=== PATIENT | female | born 1940 ===

== ENCOUNTER 2017-06-30 08:45 | Inpatient (IN) | payer MEDICARE, MEDICAID ==
[2017-06-30 08:47] VITALS: BMI 39.0
[2017-06-30] MEDS ORDERED: Aspirin 325 mg EC Tablets PO STA (09:51)
[2017-06-30 10:07] LABS: BASO # 0.1 K/uL (0.0-0.2); BASO % 0.7 % (0.0-2.0); EOS # 0.1 K/uL (0.0-0.7); EOS % 1.6 % (0.0-4.0); HEMATOCRIT 43.7 % (34.0-47.0); LYMPH # 2.1 K/uL (1.0-4.3); LYMPH % 26.5 % (20.0-40.0); MEAN CORPUSCULAR HEMOGLOBIN 29.3 pg (27.0-31.0); MEAN PLATELET VOLUME 8.6 fL (7.2-11.7); MONO # 0.6 K/uL (0.0-0.8); MONO % 7.1 % (0.0-10.0); NRBC % 0.1 % (0.0-2.0); WHITE BLOOD COUNT 7.9 K/uL (4.8-10.8)
--- NOTE | 2017-06-30 10:13 | C.PDOC ---
Time Seen by Provider: 06/30/17 09:22 Chief Complaint (Nursing): Shortness Of Breath Past Medical History Vital Signs: Last Vital Signs Temp 99 F 06/30/17 08:51 Pulse 89 06/30/17 08:51 Resp 20 06/30/17 09:15 BP 145/83 06/30/17 08:51 Pulse Ox 99 06/30/17 08:51 - Medical History PMH: HTN, Hypercholesterolemia - Social History Hx Alcohol Use: No Hx Substance Use: No - Immunization History Hx Tetanus Toxoid Vaccination: No Hx Influenza Vaccination: No Hx Pneumococcal Vaccination: No ED Course And Treatment - Laboratory Results Result Diagrams: 06/30/17 10:03 ECG: Interpreted By Me ECG Rhythm: Sinus Rhythm ECG Interpretation: Normal Interpretation Of ECG: normal axis, Normal ST-T wave Rate From EC O2 Sat by Pulse Oximetry: 99 (on RA) Pulse Ox Interpretation: Normal Disposition - Disposition
[2017-06-30 10:17] LABS: INR 1.1
--- NOTE | 2017-06-30 10:21 | C.PDOC ---
History Of Present Illness 76-year-old female, presents to the emergency department with complaints of shortness of breath, for the past few months. Patient notes associated light headedness. Denies nausea/vomiting, fevers, chills, chest pain, dizziness, or any other associated symptoms. No other complaints at this time. Time Seen by Provider: 06/30/17 09:22 Chief Complaint (Nursing): Shortness Of Breath History Per: Patient History/Exam Limitations: no limitations Onset/Duration Of Symptoms: Days Past Medical History Reviewed: Historical Data, Nursing Documentation, Vital Signs Vital Signs: Last Vital Signs Temp 97.9 F 06/30/17 14:34 Pulse 81 06/30/17 14:34 Resp 20 06/30/17 14:34 BP 138/75 06/30/17 14:34 Pulse Ox 96 06/30/17 14:34 - Medical History PMH: HTN, Hypercholesterolemia Family History: States: No Known Family Hx - Social History Hx Alcohol Use: No Hx Substance Use: No - Immunization History Hx Tetanus Toxoid Vaccination: No Hx Influenza Vaccination: No Hx Pneumococcal Vaccination: No Review Of Systems Except As Marked, All Systems Reviewed And Found Negative. Constitutional: Negative for: Fever, Chills Cardiovascular: Negative for: Chest Pain, Palpitations Respiratory: Positive for: Shortness of Breath Gastrointestinal: Negative for: Vomiting Neurological: Positive for: Dizziness. Negative for: Weakness, Numbness, Headache Physical Exam - Physical Exam Appears: Non-toxic, No Acute Distress Skin: Warm, Dry, No Rash Head: Atraumatic, Normacephalic Eye(s): bilateral: Normal Inspection, PERRL, EOMI Ear(s): Bilateral: Normal Oral Mucosa: Moist Neck: Normal ROM Chest: Symmetrical, No Tenderness Cardiovascular: Rhythm Regular, No Friction Rub, No Murmur Respiratory: Normal Breath Sounds, No Rales, No Rhonchi, No Wheezing Gastrointestinal/Abdominal: Soft, No Tenderness, Other (Obese) Back: Normal Inspection, No CVA Tenderness Extremity: Normal ROM, No Calf Tenderness, No Swelling Neurological/Psych: Oriented x3, Normal Speech, Normal Motor, Normal Sensation Gait: Steady ED Course And Treatment - Laboratory Results Result Diagrams: 06/30/17 10:03 06/30/17 10:03 ECG: Interpreted By Me ECG Rhythm: Sinus Rhythm ECG Interpretation: Normal Interpretation Of ECG: normal axis, normal ST-T wave Rate From EC O2 Sat by Pulse Oximetry: 99 (on 2L) Pulse Ox Interpretation: Normal Medical Decision Making Medical Decision Making: Plan: * EKG * Bloodwork * Chest X-Ray * Aspirin * Reassess and Disposition On re-exam, the patient is resting comfortably on NC. Case was discussed with Dr. Nielsen (vegetable thinner) who states that he sent the patient to the ED for worsened SOB and dyspnea on exertion from severe aortic insufficency. He will take the patient to the cath tomorrow and patient is to be admitted to the hospitalist. Case was discussed Dr. Landeros (hospitalist) who agrees to admit the patient to her service. Disposition - Disposition Disposition: HOSPITALIZED Disposition Time: 11:28 Condition: STABLE - POA Present On Arrival: None - Clinical Impression Clinical Impression: Dyspnea on exertion, Aortic insufficiency - Scribe Statement The provider has reviewed the documentation as recorded by the Scribe (Jarek Davies) All medical record entries made by the Scribe were at my direction and personally dictated by me. I have reviewed the chart and agree that the record accurately reflects my personal performance of the history, physical exam, medical decision making, and the department course for this patient. I have also personally directed, reviewed, and agree with the discharge instructions and disposition.
[2017-06-30 10:23] LABS: BILIRUBIN,TOTAL 1.6 mg/dL (0.2-1.3); GFR AFRICAN-AMERICAN > 60; GLUCOSE,RANDOM 82 mg/dL (65-105)
[2017-06-30 10:40] LABS: ALB/GLOB RATIO 1.1 (1.0-2.1); ALKALINE PHOSPHATASE 51 U/L (38-126); ALT/SGPT 25 U/L (9-52); AST/SGOT 43 U/L (14-36); BLOOD UREA NITROGEN 23 mg/dL (7-17); CARBON DIOXIDE 32 mmol/L (22-30); CHLORIDE 95 mmol/L (98-107); POTASSIUM 3.6 mmol/L (3.6-5.2); SODIUM 134 mmol/L (132-148); TOTAL PROTEIN 8.3 g/dL (6.3-8.3)
[2017-06-30] MEDS ORDERED: Albuterol-Ipratrop 3 mg / 0.5 (3 ml) UD INH PRN (11:41)
[2017-06-30] MEDS ORDERED: Dextrose 50% SYRINGE Inj (50 ml) IV PRN (12:08)
[2017-06-30] MEDS ORDERED: Glucagon Recombinant 1 mg Inj IM PRN (12:08)
--- NOTE | 2017-06-30 12:08 | CP.PCM.HP ---
<LauraTyler dasilva - Last Filed: 07/01/17 08:46> History of Present Illness - History of Present Illness History of Present Illness: CC: SOB This patient is a 76yo F w/ a PMhx of DM on Metformin, HTN, HLD, GERD, and COPD who is presenting to the hospital with 2-3 months of shortness of breath. SOB is more evident when patient is active or moving, and is even short of breath doing minimal activities (such as brushing hair/teeth). Patient denies all other symptoms; denies CP, abdominal pain N/V/D, dysuria/freq/urg, or lower extremity pain/swelling. She was told she had severe aortic stenosis by Dr. Nielsen who follows her as an outpatient. PMD: Dr. Nichols PMhx: HTN HLD DM GERD COPD Allergies: None Surgeries: Denies Meds: 10meq Potassium, Lasix 20mg PO Daily, Norvasc 5mg PO Daily, Lisinopril 20mg PO Daily, Prilosec OTC, Metformin 500mg BID, Singulair 10mg daily, Crestor 10mg PO daily, Aspirin 81mg daily, Advair 100 discus BID Social: Lives at home with daughters, unable to perform daily tasks 2/2 to shortness of breath, independent in all IADL that don't require movement, denies current smoking/etoh/previous drug use or current drug use Present on Admission - Present on Admission Any Indicators Present on Admission: No History of DVT/PE: No History of Uncontrolled Diabetes: Yes Urinary Catheter: No Decubitus Ulcer Present: No Review of Systems - Constitutional Constitutional: absent: Anorexia, Chills - EENT Eyes: absent: Blind Spots, Blurred Vision Ears: absent: Decreased Hearing, Ear Discharge Nose/Mouth/Throat: absent: Epistaxis, Nasal Congestion - Breasts Breasts: absent: Change in Shape, Mass, Pain - Cardiovascular Cardiovascular: Dyspnea, Dyspnea on Exertion. absent: Acrocyanosis, Chest Pain , Chest Pain at Rest, Chest Pain with Activity, Claudication, Diaphoresis, Edema , Irregular Heart Rhythm - Respiratory Respiratory: Dyspnea, Dyspnea on Exertion. absent: Cough, Hemoptysis, Wheezing , Snoring, Stridor - Gastrointestinal Gastrointestinal: absent: Abdominal Pain, Belching, Bloating, Change in Bowel Habits, Change in Stool Character - Genitourinary Genitourinary: absent: Flank Pain, Hematuria, Pyuria - Musculoskeletal Musculoskeletal: absent: Abnormal Gait, Arthralgias - Integumentary Integumentary: absent: Acne, Alopecia, Hirsutism Past Patient History - Infectious Disease Hx of Infectious Diseases: None - Past Social History Smoking Status: Never Smoked - CARDIAC Hx Hypercholesterolemia: Yes Hx Hypertension: Yes - ENDOCRINE/METABOLIC Hx Diabetes Mellitus Type 2: Yes - PSYCHIATRIC Hx Substance Use: No Meds Allergies/Adverse Reactions: Allergies Allergy/AdvReac Type Severity Reaction Status Date / Time No Known Allergies Allergy Verified 06/30/17 08:51 Physical Exam - Constitutional Appears: Well, Non-toxic, No Acute Distress - Head Exam Head Exam: ATRAUMATIC, NORMAL INSPECTION - Eye Exam Eye Exam: EOMI, Normal appearance Pupil Exam: PERRL - ENT Exam ENT Exam: Mucous Membranes Moist - Neck Exam Neck exam: Positive for: Full Rom. Negative for: Lymphadenopathy - Respiratory Exam Respiratory Exam: Clear to Auscultation Bilateral, NORMAL BREATHING PATTERN. absent: Rales, Rhonchi, Wheezes - Cardiovascular Exam Cardiovascular Exam: REGULAR RHYTHM, RRR, +S1, +S2, Systolic Murmur (severe aortic stenosis). absent: JVD - GI/Abdominal Exam GI & Abdominal Exam: Normal Bowel Sounds, Soft. absent: Tenderness - Extremities Exam Extremities exam: Positive for: full ROM. Negative for: calf tenderness - Back Exam Back exam: NORMAL INSPECTION. absent: CVA tenderness (L), CVA tenderness (R) - Neurological Exam Neurological exam: Alert, CN II-XII Intact, Oriented x3, Reflexes Normal - Psychiatric Exam Psychiatric exam: Normal Affect, Normal Mood - Skin Skin Exam: Warm Results - Vital Signs Recent Vital Signs: Last Vital Signs Temp 99 F 06/30/17 08:51 Pulse 89 06/30/17 08:51 Resp 20 06/30/17 09:15 BP 145/83 06/30/17 08:51 Pulse Ox 99 06/30/17 11:28 - Labs Result Diagrams: 07/01/17 04:00 06/30/17 10:03 Labs: Laboratory Results - last 24 hr 06/30/17 06/30/17 06/30/17 10:03 10:03 10:03 WBC 7.9 RBC 5.07 Hgb 14.9 Hct 43.7 MCV 86.0 MCH 29.3 MCHC 34.0 RDW 13.0 Plt Count 349 MPV 8.6 Neut % (Auto) 64.1 Lymph % (Auto) 26.5 [place] % (Auto) 7.1 Eos % (Auto) 1.6 Baso % (Auto) 0.7 Neut # 5.0 Lymph # 2.1 Jerome # 0.6 Eos # 0.1 Baso # 0.1 PT 11.9 INR 1.1 APTT 30 Sodium 134 Potassium 3.6 Chloride 95 L Carbon Dioxide 32 H Anion Gap 11 BUN 23 H Creatinine 0.7 Est GFR ( Amer) > 60 Est GFR (Non-Af Amer) > 60 Random Glucose 82 Calcium 9.0 Total Bilirubin 1.6 H AST 43 H ALT 25 Alkaline Phosphatase 51 Troponin I < 0.0120 NT-Pro-B Natriuret Pep 87.1 Total Protein 8.3 Albumin 4.4 Globulin 3.9 Albumin/Globulin Ratio 1.1 Assessment & Plan - Assessment and Plan (Free Text) Assessment: 76yo F admitted w/ SOB 2/2 to Severe Aortic Stenosis Severe Aortic Stenosis; chronic -Cardiology; Dr. Nielsen; following -patient is for Cath tomorrow; NPO aftermidnight -f/u lipid panel, hb1ac, and TSH/T4 tomorrow morning -No Chest Pain, but f/u x2 KAREN; initial negative -Lasix 20mg PO Daily DM;chronic -holding metformin 500mg BID home med -RISS, Accuchecks ACHS -hypoglycemia protocol -f/u HbA1C, TSH/T4, and Lipid Panel tomorrow AM HTN -holding lisinopril 2/2 to procedure tomorrow with contrast; can start 24 hours after -Amlodipine 5mg -Lasix 20mg PO HLD -c/w crestor 10mg -will add aspirin 81mg GERD -Pepcid 20mg BID COPD/Asthma -c/w Singulair and Advair -Breathing treatments PRN -O2 2L NC if below 92% on RA Proph -Pepcid -SCD -Tylenol, Zofran, Tramadol PRN Case Discussed with Dr. Adkins Decision To Admit - Pt Status Changed To: Hospital Disposition Of: Observation - . Bed Request Type: Telemetry Admitting Physician: Juan José Mccabe <Juan José Mccabe - Last Filed: 07/06/17 19:26> Results - Vital Signs Recent Vital Signs: Last Vital Signs Temp 98.4 F 06/30/17 20:11 Pulse 72 06/30/17 20:11 Resp 16 06/30/17 20:11 BP 153/63 H 06/30/17 20:11 Pulse Ox 98 06/30/17 20:11 - Labs Result Diagrams: 07/03/17 08:02 07/03/17 08:02 Labs: Laboratory Results - last 24 hr 06/30/17 06/30/17 06/30/17 10:03 10:03 10:03 WBC 7.9 RBC 5.07 Hgb 14.9 Hct 43.7 MCV 86.0 MCH 29.3 MCHC 34.0 RDW 13.0 Plt Count 349 MPV 8.6 Neut % (Auto) 64.1 Lymph % (Auto) 26.5 [place] % (Auto) 7.1 Eos % (Auto) 1.6 Baso % (Auto) 0.7 Neut # 5.0 Lymph # 2.1 Jerome # 0.6 Eos # 0.1 Baso # 0.1 PT 11.9 INR 1.1 APTT 30 Sodium 134 Potassium 3.6 Chloride 95 L Carbon Dioxide 32 H Anion Gap 11 BUN 23 H Creatinine 0.7 Est GFR ( Amer) > 60 Est GFR (Non-Af Amer) > 60 Random Glucose 82 Calcium 9.0 Total Bilirubin 1.6 H AST 43 H ALT 25 Alkaline Phosphatase 51 Troponin I < 0.0120 NT-Pro-B Natriuret Pep 87.1 Total Protein 8.3 Albumin 4.4 Globulin 3.9 Albumin/Globulin Ratio 1.1 Attending/Attestation - Attestation I have personally seen and examined this patient.: Yes I have fully participated in the care of the patient.: Yes I have reviewed all pertinent clinical information: Yes Notes (Text): Dyspnea on minimal exertion Severe going for cath tomorrow seen and examined d/w the resident
[2017-06-30] MEDS: (Novolog) Insulin Aspart, Recombinant 100 u/ml 10 ml vial SC SCH ×2 (18:17→21:57)
--- NOTE | 2017-06-30 19:01 | RAD ---
PROCEDURE: CHEST RADIOGRAPH, 1 VIEW HISTORY: chest pain COMPARISON: None available. FINDINGS: LUNGS: Poor inspiration with low lung volumes, crowded bronchovascular markings and mild bibasilar atelectasis. PLEURA: No pneumothorax or pleural fluid seen. CARDIOVASCULAR: Cardiomegaly. OSSEOUS STRUCTURES: No significant abnormalities. VISUALIZED UPPER ABDOMEN: Normal. OTHER FINDINGS: None. IMPRESSION: Poor inspiration with low lung volumes, crowded bronchovascular markings and mild bibasilar atelectasis.
--- NOTE | 2017-06-30 19:59 | CP.PCM.CON ---
History of Present Illness - History of Present Illness History of Present Illness: CC: Dyspnea on minimal exertion HPI: 76 F with symptomatic severe admitted for dyspnea on minimal exertion Scheduled for cardiac cath tomorrow Past Patient History - Past Social History Smoking Status: Never Smoked - CARDIAC Hx Hypercholesterolemia: Yes Hx Hypertension: Yes - ENDOCRINE/METABOLIC Hx Diabetes Mellitus Type 2: Yes - PSYCHIATRIC Hx Substance Use: No Meds Allergies/Adverse Reactions: Allergies Allergy/AdvReac Type Severity Reaction Status Date / Time No Known Allergies Allergy Verified 06/30/17 08:51 - Medications Medications: Current Medications Acetaminophen (Tylenol 325mg Tab) 975 mg PO Q6H PRN PRN Reason: Fever >100.4 F Albuterol/Ipratropium (Duoneb 3 Mg/0.5 Mg (3 Ml) Ud) 3 ml INH RQ6 PRN PRN Reason: SOB Amlodipine Besylate (Norvasc) 5 mg PO DAILY [facility] Aspirin (Ecotrin) 81 mg PO DAILY [facility] Dextrose (Dextrose 50% Inj) 0 ml IV STAT PRN; Protocol PRN Reason: Hypoglycemia Protocol Dextrose (Glutose 15) 0 gm PO ONCE PRN; Protocol PRN Reason: Hypoglycemia Protocol Famotidine (Pepcid) 20 mg PO BID [facility] Last Admin: 06/30/17 18:18 Dose: 20 mg Furosemide (Lasix) 20 mg PO DAILY [facility] Glucagon (Glucagen Diagnostic Kit) 1 mg IM STAT PRN; Protocol PRN Reason: Hypoglycemia Protocol Heparin Sodium (Porcine) (Heparin) 5,000 units SC Q8 [facility] Last Admin: 06/30/17 17:46 Dose: 5,000 units Dextrose (Dextrose 5% In Water 1000 Ml) 1,000 mls @ 0 mls/hr IV .Q0M PRN; Protocol; Per Protocol PRN Reason: Hypoglycemia Protocol Insulin Aspart (Novolog) 0 unit SC ACHS [facility] PRN Reason: Protocol Last Admin: 06/30/17 18:17 Dose: Not Given Montelukast Sodium (Singulair) 10 mg PO HS [facility] Ondansetron HCl (Zofran Inj) 4 mg IVP Q6H PRN PRN Reason: Nausea/Vomiting Potassium Chloride (Klor-Con 10) 10 meq PO BRK [facility] Rosuvastatin Calcium (Crestor) 10 mg PO HS [facility] Fluticasone/Salmeterol (Advair Diskus 100/50) 1 puff INH RQ12 [facility] Tramadol HCl (Ultram) 50 mg PO TID PRN PRN Reason: Pain, severe (8-10) Results - Vital Signs Recent Vital Signs: Last Vital Signs Temp 97.9 F 06/30/17 14:34 Pulse 81 06/30/17 14:34 Resp 20 06/30/17 14:34 BP 138/75 06/30/17 14:34 Pulse Ox 99 06/30/17 16:13 - Labs Result Diagrams: 06/30/17 10:03 06/30/17 10:03 Labs: Laboratory Results - last 24 hr 06/30/17 06/30/17 06/30/17 10:03 10:03 10:03 WBC 7.9 RBC 5.07 Hgb 14.9 Hct 43.7 MCV 86.0 MCH 29.3 MCHC 34.0 RDW 13.0 Plt Count 349 MPV 8.6 Neut % (Auto) 64.1 Lymph % (Auto) 26.5 [place] % (Auto) 7.1 Eos % (Auto) 1.6 Baso % (Auto) 0.7 Neut # 5.0 Lymph # 2.1 [place] # 0.6 Eos # 0.1 Baso # 0.1 PT 11.9 INR 1.1 APTT 30 Sodium 134 Potassium 3.6 Chloride 95 L Carbon Dioxide 32 H Anion Gap 11 BUN 23 H Creatinine 0.7 Est GFR ( Amer) > 60 Est GFR (Non-Af Amer) > 60 Random Glucose 82 Calcium 9.0 Total Bilirubin 1.6 H AST 43 H ALT 25 Alkaline Phosphatase 51 Troponin I < 0.0120 NT-Pro-B Natriuret Pep 87.1 Total Protein 8.3 Albumin 4.4 Globulin 3.9 Albumin/Globulin Ratio 1.1
[2017-06-30] MEDS: Fluticasone-Salmeterol 100-50mcg Diskus INH SCH (21:47)
[2017-07-01 06:17] LABS: BASO % 0.6 % (0.0-2.0); EOS # 0.2 K/uL (0.0-0.7); EOS % 2.1 % (0.0-4.0); HEMATOCRIT 39.9 % (34.0-47.0); LYMPH # 2.5 K/uL (1.0-4.3); LYMPH % 31.5 % (20.0-40.0); MEAN CELL VOLUME 85.1 fL (81.0-99.0); MEAN CORPUSCULAR HEMOGLOBIN 29.3 pg (27.0-31.0); MEAN CORPUSCULAR HGB CONC 34.4 g/dL (33.0-37.0); MEAN PLATELET VOLUME 8.2 fL (7.2-11.7); MONO # 0.6 K/uL (0.0-0.8); MONO % 7.1 % (0.0-10.0); NRBC % 0.1 % (0.0-2.0); RED CELL DISTRIBUTION WIDTH 12.8 % (11.5-14.5); WHITE BLOOD COUNT 7.9 K/uL (4.8-10.8)
[2017-07-01] MEDS: (Novolog) Insulin Aspart, Recombinant 100 u/ml 10 ml vial SC SCH ×4 (08:15→21:58)
[2017-07-01] MEDS: Potassium Chloride 10 mEq ER Tab PO SCH ×2 (08:57→10:03)
[2017-07-01 09:41] LABS: ALB/GLOB RATIO 1.1 (1.0-2.1); ALKALINE PHOSPHATASE 52 U/L (38-126); ALT/SGPT 36 U/L (9-52); AST/SGOT 30 U/L (14-36); BILIRUBIN,TOTAL 1.5 mg/dL (0.2-1.3); BLOOD UREA NITROGEN 18 mg/dL (7-17); CALCIUM 8.6 mg/dl (8.6-10.4); CARBON DIOXIDE 31 mmol/L (22-30); CHLORIDE 95 mmol/L (98-107); CHOLESTEROL 156 mg/dL (0-199); GFR AFRICAN-AMERICAN > 60; GLUCOSE,RANDOM 118 mg/dL (65-105); POTASSIUM 3.2 mmol/L (3.6-5.2); SODIUM 134 mmol/L (132-148); TOTAL PROTEIN 6.9 g/dL (6.3-8.3)
[2017-07-01 10:00] LABS: THYROID STIMULATING HORMONE 1.42 mIU/L (0.46-4.68)
[2017-07-01] MEDS ORDERED: Pneumococcal 23-Valent Vaccine IM ONE (10:00)
[2017-07-01] MEDS ORDERED: Sodium Chloride 0.45% 1,000 ML IV ONE ×2 (10:10→10:14)
[2017-07-01] MEDS: Fluticasone-Salmeterol 100-50mcg Diskus INH SCH ×2 (10:50→19:55)
--- NOTE | 2017-07-01 13:33 | CP.PCM.PN ---
<Shaina Evans - Last Filed: 07/01/17 14:10> Subjective - Date & Time of Evaluation Date of Evaluation: 07/01/17 Time of Evaluation: 13:32 - Subjective Subjective: Progress note for Dr. Israel 76F admitted w/ SOB with exertion. 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 Patient states she's feeling a little bit better and has no chest pain at the moment. Patient states she was coughing overnight. CPA at bedside stated patient was saturating 96% on nasal cannula. Patient has a history of COPD. Patient denies phlegm production. Patient states her shortness of breath occurs more when she's walking longer distances. Patient denies fever, chills, constipation, diarrhea, nausea, vomiting, headaches. Objective - Vital Signs/Intake and Output Vital Signs (last 24 hours): Temp Pulse Resp BP Pulse Ox 98.2 F 73 20 154/78 H 97 07/01/17 09:31 07/01/17 12:45 07/01/17 09:31 07/01/17 10:03 07/01/17 09:31 - Medications Medications: Current Medications Acetaminophen (Tylenol 325mg Tab) 975 mg PO Q6H PRN PRN Reason: Fever >100.4 F Albuterol/Ipratropium (Duoneb 3 Mg/0.5 Mg (3 Ml) Ud) 3 ml INH RQ6 PRN PRN Reason: SOB Amlodipine Besylate (Norvasc) 5 mg PO DAILY [facility] Last Admin: 07/01/17 10:03 Dose: 5 mg Aspirin (Ecotrin) 81 mg PO DAILY [facility] Last Admin: 07/01/17 10:03 Dose: 81 mg Dextrose (Dextrose 50% Inj) 0 ml IV STAT PRN; Protocol PRN Reason: Hypoglycemia Protocol Dextrose (Glutose 15) 0 gm PO ONCE PRN; Protocol PRN Reason: Hypoglycemia Protocol Famotidine (Pepcid) 20 mg PO BID [facility] Last Admin: 07/01/17 10:03 Dose: 20 mg Furosemide (Lasix) 20 mg PO DAILY [facility] Last Admin: 07/01/17 10:03 Dose: 20 mg Glucagon (Glucagen Diagnostic Kit) 1 mg IM STAT PRN; Protocol PRN Reason: Hypoglycemia Protocol Heparin Sodium (Porcine) (Heparin) 5,000 units SC Q8 [facility] Last Admin: 07/01/17 13:11 Dose: Not Given Dextrose (Dextrose 5% In Water 1000 Ml) 1,000 mls @ 0 mls/hr IV .Q0M PRN; Protocol; Per Protocol PRN Reason: Hypoglycemia Protocol Sodium Chloride (Sodium Chloride 0.45%) 1,000 mls @ 120 mls/hr IV .Q8H20M ONE Stop: 07/01/17 18:29 Last Admin: 07/01/17 11:03 Dose: 120 mls/hr Insulin Aspart (Novolog) 0 unit SC ACHS [facility] PRN Reason: Protocol Last Admin: 07/01/17 13:11 Dose: Not Given Montelukast Sodium (Singulair) 10 mg PO HS [facility] Last Admin: 06/30/17 21:41 Dose: 10 mg Ondansetron HCl (Zofran Inj) 4 mg IVP Q6H PRN PRN Reason: Nausea/Vomiting Pneumococcal Polyvalent Vaccine (Pneumovax 23 Vaccine) 0.5 ml IM .ONCE ONE Stop: 07/02/17 10:01 Potassium Chloride (Klor-Con 10) 10 meq PO BRK [facility] Last Admin: 07/01/17 10:03 Dose: 10 meq Rosuvastatin Calcium (Crestor) 10 mg PO HS [facility] Last Admin: 06/30/17 21:41 Dose: 10 mg Fluticasone/Salmeterol (Advair Diskus 100/50) 1 puff INH RQ12 [facility] Last Admin: 07/01/17 10:50 Dose: 1 puff Tramadol HCl (Ultram) 50 mg PO TID PRN PRN Reason: Pain, severe (8-10) - Labs Labs: 07/01/17 04:00 07/01/17 06:06 PT 11.9 SECONDS (9.7-12.2) 06/30/17 10:03 INR 1.1 06/30/17 10:03 APTT 30 SECONDS (21-34) 06/30/17 10:03 - Constitutional Appears: Non-toxic - Head Exam Head Exam: NORMAL INSPECTION - Eye Exam Eye Exam: EOMI, Normal appearance - ENT Exam ENT Exam: Mucous Membranes Moist - Neck Exam Neck Exam: Full ROM - Respiratory Exam Respiratory Exam: NORMAL BREATHING PATTERN. absent: Accessory Muscle Use, Respiratory Distress - Cardiovascular Exam Cardiovascular Exam: REGULAR RHYTHM, +S1, +S2 - GI/Abdominal Exam GI & Abdominal Exam: Distended, Soft. absent: Tenderness - Extremities Exam Extremities Exam: Pedal Edema (very mild ) - Neurological Exam Neurological Exam: Alert, Awake - Psychiatric Exam Psychiatric exam: Normal Affect, Normal Mood - Skin Skin Exam: Dry, Pallor Assessment and Plan - Assessment and Plan (Free Text) Assessment: SOB, ACS r/o KAREN negative x 3 Echo: -Cardiology Consult: Dr. Nielsen; following -07/01 cath procedure rescheduled to 07/[address] Nielsen. Diet resumed until midnight. Patient is NPO after midnight. Thyroid studies: Free T4 1.32 and TSH 1.42 -Lasix 20mg PO Daily 06/10/17 BOO with color flow doppler: Left ventricular function normal, left ventricular ejection fraction is within normal range. Aortic valve is a trileaflet. moderate to severe aortic regurgitation. mitral regurgitation is mild to moderate 06/04/17 doppler LVEF 67.8%, mildly dilated left atrium. transmitral doppler flow is grade I abnormal relaxation pattern DM;chronic -holding metformin 500mg BID home med -RISS, Accuchecks ACHS -hypoglycemia protocol -Hgb A1c 6.0 HTN -holding lisinopril 2/2 to procedure tomorrow with contrast; can start 24 hours after -Amlodipine 5mg -Lasix 20mg PO HLD TG 134 Cholesterol 156 LDL 62 HDL 58 -c/w crestor 10mg -will add aspirin 81mg GERD -Pepcid 20mg BID COPD/Asthma -c/w Singulair and Advair -Breathing treatments PRN -O2 2L NC if below 92% on RA Prophylaxis -Pepcid -SCD Pain Tylenol, Zofran, Tramadol PRN Diet: Heart Healthy diet. NPO past midnight for Cath procedure Case Discussed with Dr. Lindy Evans DO PGY1 <Jarek Israel - Last Filed: 07/01/17 15:45> Objective - Vital Signs/Intake and Output Vital Signs (last 24 hours): Temp Pulse Resp BP Pulse Ox 98.2 F 73 20 154/78 H 97 07/01/17 09:31 07/01/17 12:45 07/01/17 09:31 07/01/17 10:03 07/01/17 09:31 - Medications Medications: Current Medications Acetaminophen (Tylenol 325mg Tab) 975 mg PO Q6H PRN PRN Reason: Fever >100.4 F Albuterol/Ipratropium (Duoneb 3 Mg/0.5 Mg (3 Ml) Ud) 3 ml INH RQ6 PRN PRN Reason: SOB Amlodipine Besylate (Norvasc) 5 mg PO DAILY [facility] Last Admin: 07/01/17 10:03 Dose: 5 mg Aspirin (Ecotrin) 81 mg PO DAILY [facility] Last Admin: 07/01/17 10:03 Dose: 81 mg Dextrose (Dextrose 50% Inj) 0 ml IV STAT PRN; Protocol PRN Reason: Hypoglycemia Protocol Dextrose (Glutose 15) 0 gm PO ONCE PRN; Protocol PRN Reason: Hypoglycemia Protocol Famotidine (Pepcid) 20 mg PO BID [facility] Last Admin: 07/01/17 10:03 Dose: 20 mg Furosemide (Lasix) 20 mg PO DAILY [facility] Last Admin: 07/01/17 10:03 Dose: 20 mg Glucagon (Glucagen Diagnostic Kit) 1 mg IM STAT PRN; Protocol PRN Reason: Hypoglycemia Protocol Heparin Sodium (Porcine) (Heparin) 5,000 units SC Q8 [facility] Last Admin: 07/01/17 14:43 Dose: 5,000 units Dextrose (Dextrose 5% In Water 1000 Ml) 1,000 mls @ 0 mls/hr IV .Q0M PRN; Protocol; Per Protocol PRN Reason: Hypoglycemia Protocol Sodium Chloride (Sodium Chloride 0.45%) 1,000 mls @ 120 mls/hr IV .Q8H20M ONE Stop: 07/01/17 18:29 Last Admin: 07/01/17 11:03 Dose: 120 mls/hr Insulin Aspart (Novolog) 0 unit SC ACHS [facility] PRN Reason: Protocol Last Admin: 07/01/17 13:11 Dose: Not Given Montelukast Sodium (Singulair) 10 mg PO HS [facility] Last Admin: 06/30/17 21:41 Dose: 10 mg Ondansetron HCl (Zofran Inj) 4 mg IVP Q6H PRN PRN Reason: Nausea/Vomiting Pneumococcal Polyvalent Vaccine (Pneumovax 23 Vaccine) 0.5 ml IM .ONCE ONE Stop: 07/02/17 10:01 Potassium Chloride (Klor-Con 10) 10 meq PO BRK [facility] Last Admin: 07/01/17 10:03 Dose: 10 meq Rosuvastatin Calcium (Crestor) 10 mg PO HS [facility] Last Admin: 06/30/17 21:41 Dose: 10 mg Fluticasone/Salmeterol (Advair Diskus 100/50) 1 puff INH RQ12 [facility] Last Admin: 07/01/17 10:50 Dose: 1 puff Tramadol HCl (Ultram) 50 mg PO TID PRN PRN Reason: Pain, severe (8-10) - Labs Labs: 07/01/17 04:00 07/01/17 06:06 PT 11.9 SECONDS (9.7-12.2) 06/30/17 10:03 INR 1.1 06/30/17 10:03 APTT 30 SECONDS (21-34) 06/30/17 10:03 Attending/Attestation - Attestation I have personally seen and examined this patient.: Yes I have fully participated in the care of the patient.: Yes I have reviewed all pertinent clinical information, including history, physical exam and plan: Yes Notes (Text): 07/01/17 15:45 Medical attending: Patient was seen and examined by me, agrees the above note by medical instructor. This is my first time meeting patient, so will have to review the previous notes as well as discussed with the patient and the medical instructor. When I saw her she is not under any acute distress. The plan from what I understand was for her to have a cardiac cath today to assess for CAD, ejection fraction, etc. however later on I was notified that this had to be postponed until tomorrow so she is given be nothing by mouth after midnight Thank you very much, Jarek Israel
--- NOTE | 2017-07-01 17:53 | CARD ---
APPROVED REPORT EKG Measurement Heart [id number] ID [id number] <Conclusion> Sinus rhythm with premature atrial complexes Otherwise normal ECG
[2017-07-02] MEDS: Fluticasone-Salmeterol 100-50mcg Diskus INH SCH ×2 (07:48→19:45)
[2017-07-02] MEDS: (Novolog) Insulin Aspart, Recombinant 100 u/ml 10 ml vial SC SCH ×4 (08:23→22:23)
[2017-07-02 08:53] LABS: BASO % 0.7 % (0.0-2.0); EOS # 0.1 K/uL (0.0-0.7); EOS % 2.5 % (0.0-4.0); HEMATOCRIT 40.4 % (34.0-47.0); LYMPH # 1.9 K/uL (1.0-4.3); LYMPH % 32.2 % (20.0-40.0); MEAN CELL VOLUME 86.6 fL (81.0-99.0); MEAN CORPUSCULAR HEMOGLOBIN 29.1 pg (27.0-31.0); MEAN CORPUSCULAR HGB CONC 33.6 g/dL (33.0-37.0); MEAN PLATELET VOLUME 8.7 fL (7.2-11.7); MONO # 0.4 K/uL (0.0-0.8); MONO % 6.3 % (0.0-10.0); NRBC % 0.1 % (0.0-2.0); RED CELL DISTRIBUTION WIDTH 13.1 % (11.5-14.5); WHITE BLOOD COUNT 5.8 K/uL (4.8-10.8)
[2017-07-02 09:06] LABS: ALB/GLOB RATIO 1.2 (1.0-2.1); ALKALINE PHOSPHATASE 55 U/L (38-126); ALT/SGPT 43 U/L (9-52); AST/SGOT 28 U/L (14-36); BILIRUBIN,TOTAL 1.5 mg/dL (0.2-1.3); BLOOD UREA NITROGEN 16 mg/dL (7-17); CALCIUM 8.2 mg/dl (8.6-10.4); CARBON DIOXIDE 28 mmol/L (22-30); CHLORIDE 97 mmol/L (98-107); GFR AFRICAN-AMERICAN > 60; GLUCOSE,RANDOM 117 mg/dL (65-105); POTASSIUM 3.3 mmol/L (3.6-5.2); SODIUM 135 mmol/L (132-148)
[2017-07-02] MEDS: Potassium Chloride 10 mEq ER Tab PO SCH (09:25)
[2017-07-02] MEDS: Potassium Chloride 20 mEq ER Tab PO SCH (09:31)
[2017-07-02] MEDS ORDERED: Pneumococcal 23-Valent Vaccine IM ONE (10:00)
[2017-07-02 10:18] LABS: MAGNESIUM 1.8 mg/dL (1.6-2.3)
[2017-07-02] MEDS ORDERED: Midazolam 2 MG/2 ML VIAL ONE (10:51)
[2017-07-02] MEDS ORDERED: Iohexol 350mg/ml 100 ML ONE (10:51)
[2017-07-02] MEDS ORDERED: Iohexol 350mgl/ml 50 ML ONE (10:52)
--- NOTE | 2017-07-02 15:11 | CP.PCM.PN ---
<NathanShaina - Last Filed: 07/02/17 15:11> Subjective - Date & Time of Evaluation Date of Evaluation: 07/02/17 Time of Evaluation: 15:08 - Subjective Subjective: Progress note for Dr. 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 Patient states she's doing well and has just a little difficulty breathing. she said she was taken off of nasal cannula today, but she's unsure why. Patient is sitting up in bed and denies any chest pain and shortness of breath. Patient denies fever, chills, nausea, vomiting, constipation, shortness of breath. Objective - Vital Signs/Intake and Output Vital Signs (last 24 hours): Temp Pulse Resp BP Pulse Ox 97.6 F 70 20 146/65 96 07/02/17 09:24 07/02/17 09:24 07/02/17 09:24 07/02/17 09:24 07/02/17 09:24 - Medications Medications: Current Medications Acetaminophen (Tylenol 325mg Tab) 975 mg PO Q6H PRN PRN Reason: Fever >100.4 F Albuterol/Ipratropium (Duoneb 3 Mg/0.5 Mg (3 Ml) Ud) 3 ml INH RQ6 PRN PRN Reason: SOB Amlodipine Besylate (Norvasc) 5 mg PO DAILY [facility] Last Admin: 07/02/17 09:25 Dose: 5 mg Aspirin (Ecotrin) 81 mg PO DAILY [facility] Last Admin: 07/02/17 09:24 Dose: 81 mg Dextrose (Dextrose 50% Inj) 0 ml IV STAT PRN; Protocol PRN Reason: Hypoglycemia Protocol Dextrose (Glutose 15) 0 gm PO ONCE PRN; Protocol PRN Reason: Hypoglycemia Protocol Famotidine (Pepcid) 20 mg PO BID [facility] Last Admin: 07/02/17 09:24 Dose: 20 mg Furosemide (Lasix) 20 mg PO DAILY [facility] Last Admin: 07/02/17 09:25 Dose: Not Given Glucagon (Glucagen Diagnostic Kit) 1 mg IM STAT PRN; Protocol PRN Reason: Hypoglycemia Protocol Heparin Sodium (Porcine) (Heparin) 5,000 units SC Q8 [facility] Last Admin: 07/02/17 14:33 Dose: Not Given Dextrose (Dextrose 5% In Water 1000 Ml) 1,000 mls @ 0 mls/hr IV .Q0M PRN; Protocol; Per Protocol PRN Reason: Hypoglycemia Protocol Insulin Aspart (Novolog) 0 unit SC ACHS [facility] PRN Reason: Protocol Last Admin: 07/02/17 13:00 Dose: Not Given Montelukast Sodium (Singulair) 10 mg PO HS [facility] Last Admin: 07/01/17 22:12 Dose: 10 mg Ondansetron HCl (Zofran Inj) 4 mg IVP Q6H PRN PRN Reason: Nausea/Vomiting Potassium Chloride (Klor-Con 10) 10 meq PO BRK [facility] Last Admin: 07/02/17 09:25 Dose: 10 meq Potassium Chloride (K-Dur 20 Meq Er Tab) 20 meq PO DAILY [facility] Last Admin: 07/02/17 09:31 Dose: 20 meq Rosuvastatin Calcium (Crestor) 10 mg PO HS [facility] Last Admin: 07/01/17 22:12 Dose: 10 mg Fluticasone/Salmeterol (Advair Diskus 100/50) 1 puff INH RQ12 [facility] Last Admin: 07/02/17 07:48 Dose: 1 puff Tramadol HCl (Ultram) 50 mg PO TID PRN PRN Reason: Pain, severe (8-10) - Labs Labs: 07/02/17 08:42 07/02/17 08:42 PT 11.9 SECONDS (9.7-12.2) 06/30/17 10:03 INR 1.1 06/30/17 10:03 APTT 30 SECONDS (21-34) 06/30/17 10:03 - Constitutional Appears: Non-toxic - Head Exam Head Exam: NORMAL INSPECTION - Eye Exam Eye Exam: EOMI, Normal appearance - ENT Exam ENT Exam: Mucous Membranes Moist - Neck Exam Neck Exam: Full ROM - Respiratory Exam Respiratory Exam: NORMAL BREATHING PATTERN. absent: Accessory Muscle Use, Respiratory Distress, Stridor - Cardiovascular Exam Cardiovascular Exam: REGULAR RHYTHM, +S1, +S2 - GI/Abdominal Exam GI & Abdominal Exam: Distended, Soft. absent: Tenderness - Extremities Exam Extremities Exam: Full ROM. absent: Pedal Edema - Neurological Exam Neurological Exam: Alert, Awake - Psychiatric Exam Psychiatric exam: Normal Affect, Normal Mood - Skin Skin Exam: Dry, Intact, Normal Color, Warm Assessment and Plan - Assessment and Plan (Free Text) Assessment: SOB, ACS r/o KAREN negative x 3 Echo: -Cardiology Consult: Dr. Nielsen; following -07/01 cath procedure rescheduled to 07/[address] Nielsen. Diet resumed until midnight. Patient is NPO after midnight. Thyroid studies: Free T4 1.32 and TSH 1.42 -Lasix 20mg PO Daily 06/10/17 BOO with color flow doppler: Left ventricular function normal, left ventricular ejection fraction is within normal range. Aortic valve is a trileaflet. moderate to severe aortic regurgitation. mitral regurgitation is mild to moderate 06/04/17 doppler LVEF 67.8%, mildly dilated left atrium. 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 NPO past midnight for Cath procedure Case Discussed with Dr. Lindy Evans DO PGY1 <Jarek Israel - Last Filed: 07/02/17 15:16> Objective - Vital Signs/Intake and Output Vital Signs (last 24 hours): Temp Pulse Resp BP Pulse Ox 97.9 F 71 18 148/71 98 07/02/17 12:20 07/02/17 12:20 07/02/17 12:20 07/02/17 12:20 07/02/17 12:20 - Medications Medications: Current Medications Acetaminophen (Tylenol 325mg Tab) 975 mg PO Q6H PRN PRN Reason: Fever >100.4 F Albuterol/Ipratropium (Duoneb 3 Mg/0.5 Mg (3 Ml) Ud) 3 ml INH RQ6 PRN PRN Reason: SOB Amlodipine Besylate (Norvasc) 5 mg PO DAILY [facility] Last Admin: 07/02/17 09:25 Dose: 5 mg Aspirin (Ecotrin) 81 mg PO DAILY [facility] Last Admin: 07/02/17 09:24 Dose: 81 mg Dextrose (Dextrose 50% Inj) 0 ml IV STAT PRN; Protocol PRN Reason: Hypoglycemia Protocol Dextrose (Glutose 15) 0 gm PO ONCE PRN; Protocol PRN Reason: Hypoglycemia Protocol Famotidine (Pepcid) 20 mg PO BID [facility] Last Admin: 07/02/17 09:24 Dose: 20 mg Furosemide (Lasix) 20 mg PO DAILY [facility] Last Admin: 07/02/17 09:25 Dose: Not Given Glucagon (Glucagen Diagnostic Kit) 1 mg IM STAT PRN; Protocol PRN Reason: Hypoglycemia Protocol Heparin Sodium (Porcine) (Heparin) 5,000 units SC Q8 [facility] Last Admin: 07/02/17 14:33 Dose: Not Given Dextrose (Dextrose 5% In Water 1000 Ml) 1,000 mls @ 0 mls/hr IV .Q0M PRN; Protocol; Per Protocol PRN Reason: Hypoglycemia Protocol Insulin Aspart (Novolog) 0 unit SC ACHS [facility] PRN Reason: Protocol Last Admin: 07/02/17 13:00 Dose: Not Given Montelukast Sodium (Singulair) 10 mg PO HS [facility] Last Admin: 07/01/17 22:12 Dose: 10 mg Ondansetron HCl (Zofran Inj) 4 mg IVP Q6H PRN PRN Reason: Nausea/Vomiting Potassium Chloride (Klor-Con 10) 10 meq PO BRK [facility] Last Admin: 07/02/17 09:25 Dose: 10 meq Potassium Chloride (K-Dur 20 Meq Er Tab) 20 meq PO DAILY [facility] Last Admin: 07/02/17 09:31 Dose: 20 meq Rosuvastatin Calcium (Crestor) 10 mg PO HS [facility] Last Admin: 07/01/17 22:12 Dose: 10 mg Fluticasone/Salmeterol (Advair Diskus 100/50) 1 puff INH RQ12 [facility] Last Admin: 07/02/17 07:48 Dose: 1 puff Tramadol HCl (Ultram) 50 mg PO TID PRN PRN Reason: Pain, severe (8-10) - Labs Labs: 07/02/17 08:42 07/02/17 08:42 PT 11.9 SECONDS (9.7-12.2) 06/30/17 10:03 INR 1.1 06/30/17 10:03 APTT 30 SECONDS (21-34) 06/30/17 10:03 Attending/Attestation - Attestation I have personally seen and examined this patient.: Yes I have fully participated in the care of the patient.: Yes I have reviewed all pertinent clinical information, including history, physical exam and plan: Yes Notes (Text): 07/02/17 15:16 Medical attending: Patient was seen and examined by me, agrees the above note by certified medical transcriptionist. Patient went down to the cardiac catheterization lab. The results of which are not he had available at this moment. Nevertheless will need to return follow whatever recommendations cardiology advises Thank you very much, Jarek Israel
[2017-07-02 17:12] VITALS: RESP 20
--- NOTE | 2017-07-02 22:29 | CP.PCM.PN ---
Subjective - Date & Time of Evaluation Date of Evaluation: 07/02/17 Time of Evaluation: 12:05 - Subjective Subjective: Patient s/p cath Normal coronaries Normal EF Moderate to severe AI Symptomatic valvular heart disease (AR) Will refer Patient for CT surgery Objective - Vital Signs/Intake and Output Vital Signs (last 24 hours): Temp Pulse Resp BP Pulse Ox 97.7 F 80 20 118/66 98 07/02/17 15:10 07/02/17 17:30 07/02/17 15:10 07/02/17 15:10 07/02/17 15:10 Intake and Output: 07/02/17 07/03/17 18:59 06:59 Intake Total 300 Balance 300 - Medications Medications: Current Medications Acetaminophen (Tylenol 325mg Tab) 975 mg PO Q6H PRN PRN Reason: Fever >100.4 F Albuterol/Ipratropium (Duoneb 3 Mg/0.5 Mg (3 Ml) Ud) 3 ml INH RQ6 PRN PRN Reason: SOB Amlodipine Besylate (Norvasc) 5 mg PO DAILY [facility] Last Admin: 07/02/17 09:25 Dose: 5 mg Aspirin (Ecotrin) 81 mg PO DAILY [facility] Last Admin: 07/02/17 09:24 Dose: 81 mg Dextrose (Dextrose 50% Inj) 0 ml IV STAT PRN; Protocol PRN Reason: Hypoglycemia Protocol Dextrose (Glutose 15) 0 gm PO ONCE PRN; Protocol PRN Reason: Hypoglycemia Protocol Famotidine (Pepcid) 20 mg PO BID [facility] Last Admin: 07/02/17 17:46 Dose: 20 mg Furosemide (Lasix) 20 mg PO DAILY [facility] Last Admin: 07/02/17 09:25 Dose: Not Given Glucagon (Glucagen Diagnostic Kit) 1 mg IM STAT PRN; Protocol PRN Reason: Hypoglycemia Protocol Heparin Sodium (Porcine) (Heparin) 5,000 units SC Q8 [facility] Last Admin: 07/02/17 22:27 Dose: 5,000 units Dextrose (Dextrose 5% In Water 1000 Ml) 1,000 mls @ 0 mls/hr IV .Q0M PRN; Protocol; Per Protocol PRN Reason: Hypoglycemia Protocol Insulin Aspart (Novolog) 0 unit SC ACHS [facility] PRN Reason: Protocol Last Admin: 07/02/17 22:23 Dose: Not Given Montelukast Sodium (Singulair) 10 mg PO [facility] Last Admin: 07/02/17 22:24 Dose: 10 mg Ondansetron HCl (Zofran Inj) 4 mg IVP Q6H PRN PRN Reason: Nausea/Vomiting Potassium Chloride (Klor-Con 10) 10 meq PO BRK [facility] Last Admin: 07/02/17 09:25 Dose: 10 meq Potassium Chloride (K-Dur 20 Meq Er Tab) 20 meq PO DAILY [facility] Last Admin: 07/02/17 09:31 Dose: 20 meq Rosuvastatin Calcium (Crestor) 10 mg PO HS [facility] Last Admin: 07/02/17 22:24 Dose: 10 mg Fluticasone/Salmeterol (Advair Diskus 100/50) 1 puff INH RQ12 [facility] Last Admin: 07/02/17 19:45 Dose: 1 puff Tramadol HCl (Ultram) 50 mg PO TID PRN PRN Reason: Pain, severe (8-10) - Labs Labs: 07/02/17 08:42 07/02/17 08:42 PT 11.9 SECONDS (9.7-12.2) 06/30/17 10:03 INR 1.1 06/30/17 10:03 APTT 30 SECONDS (21-34) 06/30/17 10:03
[2017-07-03] MEDS: (Novolog) Insulin Aspart, Recombinant 100 u/ml 10 ml vial SC SCH ×2 (07:58→12:30)
[2017-07-03 08:12] LABS: BASO % 0.5 % (0.0-2.0); EOS # 0.2 K/uL (0.0-0.7); EOS % 2.5 % (0.0-4.0); HEMATOCRIT 40.8 % (34.0-47.0); LYMPH % 33.3 % (20.0-40.0); MEAN CELL VOLUME 87.6 fL (81.0-99.0); MEAN CORPUSCULAR HEMOGLOBIN 29.3 pg (27.0-31.0); MEAN CORPUSCULAR HGB CONC 33.4 g/dL (33.0-37.0); MEAN PLATELET VOLUME 8.5 fL (7.2-11.7); MONO # 0.4 K/uL (0.0-0.8); MONO % 6.9 % (0.0-10.0); NRBC % 0.1 % (0.0-2.0); RED CELL DISTRIBUTION WIDTH 13.2 % (11.5-14.5); WHITE BLOOD COUNT 6.1 K/uL (4.8-10.8)
[2017-07-03] MEDS: Potassium Chloride 10 mEq ER Tab PO SCH (08:17)
[2017-07-03 08:33] LABS: ALB/GLOB RATIO 1.1 (1.0-2.1); ALKALINE PHOSPHATASE 52 U/L (38-126); ALT/SGPT 34 U/L (9-52); AST/SGOT 27 U/L (14-36); BILIRUBIN,TOTAL 1.1 mg/dL (0.2-1.3); BLOOD UREA NITROGEN 16 mg/dL (7-17); CALCIUM 8.3 mg/dl (8.6-10.4); CARBON DIOXIDE 30 mmol/L (22-30); CHLORIDE 100 mmol/L (98-107); GFR AFRICAN-AMERICAN > 60; GLUCOSE,RANDOM 117 mg/dL (65-105); MAGNESIUM 1.9 mg/dL (1.6-2.3); POTASSIUM 4.1 mmol/L (3.6-5.2); SODIUM 138 mmol/L (132-148); TOTAL PROTEIN 7.3 g/dL (6.3-8.3)
[2017-07-03] MEDS: Potassium Chloride 20 mEq ER Tab PO SCH (09:27)
--- NOTE | 2017-07-03 09:31 | CP.PCM.PN ---
<Shaina Evans - Last Filed: 07/03/17 10:46> Subjective - Date & Time of Evaluation Date of Evaluation: 07/03/17 Time of Evaluation: 09:28 - Subjective Subjective: Progress note for Dr. Israel Patient seen and examined at bedside seemingly short of breath. This resident placed the patient back on nasal cannula. Patient states she feels a little bit better, but not much has changed since yesterday. Patient was explained that Dr. Nielsen found problem with her valves, which she will need a procedure [place] [facility]. Nielsen, patient will be getting a valve replacement at [facility] and we are waiting on a bed for transfer, which is likely to be for today. TAMMI Teran had the EMTALA papers and forms sent [place] [facility]. Objective - Vital Signs/Intake and Output Vital Signs (last 24 hours): Temp Pulse Resp BP Pulse Ox 97.1 F L 64 20 128/56 L 98 07/03/17 08:27 07/03/17 09:26 07/03/17 09:26 07/03/17 09:26 07/03/17 09:26 - Medications Medications: Current Medications Acetaminophen (Tylenol 325mg Tab) 975 mg PO Q6H PRN PRN Reason: Fever >100.4 F Albuterol/Ipratropium (Duoneb 3 Mg/0.5 Mg (3 Ml) Ud) 3 ml INH RQ6 PRN PRN Reason: SOB Amlodipine Besylate (Norvasc) 5 mg PO DAILY [facility] Last Admin: 07/02/17 09:25 Dose: 5 mg Aspirin (Ecotrin) 81 mg PO DAILY [facility] Last Admin: 07/02/17 09:24 Dose: 81 mg Dextrose (Dextrose 50% Inj) 0 ml IV STAT PRN; Protocol PRN Reason: Hypoglycemia Protocol Dextrose (Glutose 15) 0 gm PO ONCE PRN; Protocol PRN Reason: Hypoglycemia Protocol Famotidine (Pepcid) 20 mg PO BID [facility] Last Admin: 07/02/17 17:46 Dose: 20 mg Furosemide (Lasix) 20 mg PO DAILY [facility] Last Admin: 07/02/17 09:25 Dose: Not Given Glucagon (Glucagen Diagnostic Kit) 1 mg IM STAT PRN; Protocol PRN Reason: Hypoglycemia Protocol Heparin Sodium (Porcine) (Heparin) 5,000 units SC Q8 [facility] Last Admin: 07/03/17 05:38 Dose: 5,000 units Dextrose (Dextrose 5% In Water 1000 Ml) 1,000 mls @ 0 mls/hr IV .Q0M PRN; Protocol; Per Protocol PRN Reason: Hypoglycemia Protocol Insulin Aspart (Novolog) 0 unit SC ACHS [facility] PRN Reason: Protocol Last Admin: 07/03/17 07:58 Dose: Not Given Montelukast Sodium (Singulair) 10 mg PO HS [facility] Last Admin: 07/02/17 22:24 Dose: 10 mg Ondansetron HCl (Zofran Inj) 4 mg IVP Q6H PRN PRN Reason: Nausea/Vomiting Potassium Chloride (Klor-Con 10) 10 meq PO BRK [facility] Last Admin: 07/03/17 08:17 Dose: 10 meq Rosuvastatin Calcium (Crestor) 10 mg PO HS [facility] Last Admin: 07/02/17 22:24 Dose: 10 mg Fluticasone/Salmeterol (Advair Diskus 100/50) 1 puff INH RQ12 [facility] Last Admin: 07/02/17 19:45 Dose: 1 puff Tramadol HCl (Ultram) 50 mg PO TID PRN PRN Reason: Pain, severe (8-10) - Labs Labs: 07/03/17 08:02 07/03/17 08:02 PT 11.9 SECONDS (9.7-12.2) 06/30/17 10:03 INR 1.1 06/30/17 10:03 APTT 30 SECONDS (21-34) 06/30/17 10:03 - Constitutional Appears: Non-toxic - Head Exam Head Exam: NORMAL INSPECTION - Eye Exam Eye Exam: EOMI, Normal appearance - ENT Exam ENT Exam: Mucous Membranes Moist - Neck Exam Neck Exam: Full ROM - Respiratory Exam Respiratory Exam: NORMAL BREATHING PATTERN. absent: Accessory Muscle Use, Respiratory Distress - Cardiovascular Exam Cardiovascular Exam: REGULAR RHYTHM, +S1, +S2. absent: Bradycardia, Tachycardia - GI/Abdominal Exam GI & Abdominal Exam: Soft. absent: Tenderness - Extremities Exam Extremities Exam: Full ROM. absent: Pedal Edema - Back Exam Back Exam: Full ROM - Neurological Exam Neurological Exam: Alert, Awake, Oriented x3 - Psychiatric Exam Psychiatric exam: Normal Affect, Normal Mood - Skin Skin Exam: Dry, Intact Additional comments: no hematoma at site of catheter insertion. dressings c/d/i Assessment and Plan - Assessment and Plan (Free Text) Assessment: SOB, ACS r/o KAREN negative x 3 Echo: -Cardiology Consult: Dr. Nielsen; following -07/01 cath procedure rescheduled to 07/[address] Nielsen. Diet resumed until midnight. Patient is NPO after midnight. Thyroid studies: Free T4 1.32 and TSH 1.42 -Lasix 20mg PO Daily 06/10/17 BOO with color flow doppler: Left ventricular function normal, left ventricular ejection fraction is within normal range. Aortic valve is a trileaflet. moderate to severe aortic regurgitation. mitral regurgitation is mild to moderate 06/04/17 doppler LVEF 67.8%, mildly dilated left atrium. 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 Normal ejection fraction. normal coronary artery perfusion per Dr. Nielsen, patient will need CT surgery follow [place] [facility]. 07/02 f/u Dr. Nielsen recommendations as to when the procedure needs to be done. 07/03: Dr. Nielsen stated patient will need valve replacement. DR. Nielsen spoke to [facility] [place] they are working on getting the patient a bed. Likely to transfer today. DM; chronic -holding metformin 500mg BID home med -RISS, Accuchecks ACHS -hypoglycemia protocol -Hgb A1c 6.0 HTN -holding lisinopril 2/2 to procedure tomorrow with contrast; can start 24 hours after -Amlodipine 5mg -Lasix 20mg PO HLD TG 134 Cholesterol 156 LDL 62 HDL 58 -c/w crestor 10mg -will add aspirin 81mg GERD -Pepcid 20mg BID COPD/Asthma -c/w Singulair and Advair -Breathing treatments PRN -O2 2L NC if below 92% on RA Prophylaxis -Pepcid -SCD Pain Tylenol, Zofran, Tramadol PRN Diet: Heart Healthy diet. NPO past midnight for Cath procedure Case Discussed with Dr. Lindy Evans DO PGY1 <Jarek Israel - Last Filed: 07/04/17 07:20> Objective - Vital Signs/Intake and Output Vital Signs (last 24 hours): Temp Pulse Resp BP Pulse Ox 97.9 F 83 20 140/60 97 07/03/17 16:00 07/03/17 16:00 07/03/17 16:00 07/03/17 16:00 07/03/17 16:00 - Medications Medications: Current Medications Acetaminophen (Tylenol 325mg Tab) 975 mg PO Q6H PRN PRN Reason: Fever >100.4 F Albuterol/Ipratropium (Duoneb 3 Mg/0.5 Mg (3 Ml) Ud) 3 ml INH RQ6 PRN PRN Reason: SOB Amlodipine Besylate (Norvasc) 5 mg PO DAILY [facility] Last Admin: 07/03/17 09:27 Dose: 5 mg Aspirin (Ecotrin) 81 mg PO DAILY [facility] Last Admin: 07/03/17 09:26 Dose: 81 mg Dextrose (Dextrose 50% Inj) 0 ml IV STAT PRN; Protocol PRN Reason: Hypoglycemia Protocol Dextrose (Glutose 15) 0 gm PO ONCE PRN; Protocol PRN Reason: Hypoglycemia Protocol Famotidine (Pepcid) 20 mg PO BID [facility] Last Admin: 07/03/17 09:26 Dose: 20 mg Furosemide (Lasix) 20 mg PO DAILY [facility] Last Admin: 07/03/17 09:26 Dose: 20 mg Glucagon (Glucagen Diagnostic Kit) 1 mg IM STAT PRN; Protocol PRN Reason: Hypoglycemia Protocol Dextrose (Dextrose 5% In Water 1000 Ml) 1,000 mls @ 0 mls/hr IV .Q0M PRN; Protocol; Per Protocol PRN Reason: Hypoglycemia Protocol Insulin Aspart (Novolog) 0 unit SC ACHS [facility] PRN Reason: Protocol Last Admin: 07/03/17 12:30 Dose: Not Given Montelukast Sodium (Singulair) 10 mg PO HS [facility] Last Admin: 07/02/17 22:24 Dose: 10 mg Ondansetron HCl (Zofran Inj) 4 mg IVP Q6H PRN PRN Reason: Nausea/Vomiting Potassium Chloride (Klor-Con 10) 10 meq PO BRK [facility] Last Admin: 07/03/17 08:17 Dose: 10 meq Rosuvastatin Calcium (Crestor) 10 mg PO HS [facility] Last Admin: 07/02/17 22:24 Dose: 10 mg Fluticasone/Salmeterol (Advair Diskus 100/50) 1 puff INH RQ12 [facility] Last Admin: 07/03/17 10:13 Dose: 1 puff Tramadol HCl (Ultram) 50 mg PO TID PRN PRN Reason: Pain, severe (8-10) - Labs Labs: 07/03/17 08:02 07/03/17 08:02 PT 11.9 SECONDS (9.7-12.2) 06/30/17 10:03 INR 1.1 06/30/17 10:03 APTT 30 SECONDS (21-34) 06/30/17 10:03 Attending/Attestation - Attestation I have personally seen and examined this patient.: Yes I have fully participated in the care of the patient.: Yes I have reviewed all pertinent clinical information, including history, physical exam and plan: Yes Notes (Text): Medical attending: Patient was seen and examined by me. Agree with the above note by the resident Patient had just completed cardiac catherization and per cardiology there are concerning vavular disease. Currently the patient is pending transfer [place] [facility] [place] thank you Jarek Israel
[2017-07-03] MEDS: Fluticasone-Salmeterol 100-50mcg Diskus INH SCH (10:13)
[2017-07-03 16:31] VITALS: BP 140/60; PULSE 83; TEMP 97.9; O2SAT 97
--- NOTE | 2017-07-03 19:27 | CP.PCM.DIS ---
<Shaina Evans - Last Filed: 07/03/17 19:27> Provider - Provider Date of Admission: 06/30/17 11:28 Attending physician: Juan José Mccabe MD Consults: DR. Nielsen Time Spent in preparation of Discharge (in minutes): 35 Hospital Course - Lab Results Lab Results: Most Recent Lab Values WBC 6.1 K/uL (4.8-10.8) 07/03/17 08:02 RBC 4.66 Mil/uL (3.80-5.20) 07/03/17 08:02 Hgb 13.6 g/dL (11.0-16.0) 07/03/17 08:02 Hct 40.8 % (34.0-47.0) 07/03/17 08:02 MCV 87.6 fL (81.0-99.0) 07/03/17 08:02 MCH 29.3 pg (27.0-31.0) 07/03/17 08:02 MCHC 33.4 g/dL (33.0-37.0) 07/03/17 08:02 RDW 13.2 % (11.5-14.5) 07/03/17 08:02 Plt Count 291 K/uL (130-400) 07/03/17 08:02 MPV 8.5 fL (7.2-11.7) 07/03/17 08:02 Neut % (Auto) 56.8 % (50.0-75.0) 07/03/17 08:02 Lymph % (Auto) 33.3 % (20.0-40.0) 07/03/17 08:02 Overton % (Auto) 6.9 % (0.0-10.0) 07/03/17 08:02 Eos % (Auto) 2.5 % (0.0-4.0) 07/03/17 08:02 Baso % (Auto) 0.5 % (0.0-2.0) 07/03/17 08:02 Neut # 3.5 K/uL (1.8-7.0) 07/03/17 08:02 Lymph # 2.0 K/uL (1.0-4.3) 07/03/17 08:02 Overton # 0.4 K/uL (0.0-0.8) 07/03/17 08:02 Eos # 0.2 K/uL (0.0-0.7) 07/03/17 08:02 Baso # 0.0 K/uL (0.0-0.2) 07/03/17 08:02 PT 11.9 SECONDS (9.7-12.2) 06/30/17 10:03 INR 1.1 06/30/17 10:03 APTT 30 SECONDS (21-34) 06/30/17 10:03 Sodium 138 mmol/L (132-148) 07/03/17 08:02 Potassium 4.1 mmol/L (3.6-5.2) 07/03/17 08:02 Chloride 100 mmol/L (98-107) 07/03/17 08:02 Carbon Dioxide 30 mmol/L (22-30) 07/03/17 08:02 Anion Gap 12 (10-20) 07/03/17 08:02 BUN 16 mg/dL (7-17) 07/03/17 08:02 Creatinine 0.6 mg/dL (0.7-1.2) L 07/03/17 08:02 Est GFR ( Amer) > 60 07/03/17 08:02 Est GFR (Non-Af Amer) > 60 07/03/17 08:02 POC Glucose (mg/dL) 145 mg/dL (65-110) H 07/03/17 16:17 Random Glucose 117 mg/dL (65-105) H 07/03/17 08:02 Hemoglobin A1c 6.0 % (4.2-6.5) 07/01/17 06:06 Calcium 8.3 mg/dl (8.6-10.4) L 07/03/17 08:02 Magnesium 1.9 mg/dL (1.6-2.3) 07/03/17 08:02 Total Bilirubin 1.1 mg/dL (0.2-1.3) 07/03/17 08:02 AST 27 U/L (14-36) 07/03/17 08:02 ALT 34 U/L (9-52) 07/03/17 08:02 Alkaline Phosphatase 52 U/L (38-126) 07/03/17 08:02 Total Creatine Kinase 93 U/L (30-135) 07/01/17 04:27 CK-MB (Mass) 1.11 ng/mL (0.0-3.38) 07/01/17 04:27 Troponin I < 0.0120 ng/mL (0.00-0.120) 07/01/17 04:27 NT-Pro-B Natriuret Pep 87.1 pg/mL (0-900) 06/30/17 10:03 Total Protein 7.3 g/dL (6.3-8.3) 07/03/17 08:02 Albumin 3.8 g/dL (3.5-5.0) 07/03/17 08:02 Globulin 3.5 gm/dL (2.2-3.9) 07/03/17 08:02 Albumin/Globulin Ratio 1.1 (1.0-2.1) 07/03/17 08:02 Triglycerides 134 mg/dL (0-149) 07/01/17 06:06 Cholesterol 156 mg/dL (0-199) 07/01/17 06:06 LDL Cholesterol Direct 62 mg/dL (0-129) 07/01/17 06:06 HDL Cholesterol 58 mg/dL (30-70) 07/01/17 06:06 Free T4 1.32 ng/dL (0.78-2.19) 07/01/17 06:06 TSH 3rd Generation 1.42 mIU/L (0.46-4.68) 07/01/17 06:06 - Hospital Course Hospital Course: This patient is a 76yo F w/ a PMhx of DM on Metformin, HTN, HLD, GERD, and COPD who is presenting to the hospital with 2-3 months of shortness of breath. SOB is more evident when patient is active or moving, and is even short of breath doing minimal activities (such as brushing hair/teeth). Patient denies all other symptoms; denies CP, abdominal pain N/V/D, dysuria/freq/urg, or lower extremity pain/swelling. She was told she had severe aortic stenosis by Dr. Nielsen who follows her as an outpatient. Hospital Course: Patient had a cath procedure done and was found to have moderate to severe aortic insufficiency. Patient seen and examined at bedside seemingly short of breath. This resident placed the patient back on nasal cannula. Patient states she feels a little bit better, but not much has changed since yesterday. Patient was explained that Dr. Nielsen found problem with her valves, which she will need a procedure for in [facility]. Per Dr. Nielsen, patient will be getting a valve replacement at [facility] approval for transfer today to [facility]. TAMMI Teran had the EMTALA papers and forms sent to [facility]. Papers were filled and patient left around 17:20 07/03 - Date & Time of H&P Date of H&P: 07/03/17 Time of H&P: 19:25 Discharge Exam - Head Exam Head Exam: NORMAL INSPECTION - Eye Exam Eye Exam: EOMI, Normal appearance - ENT Exam ENT Exam: Mucous Membranes Moist - Neck Exam Neck exam: Normal Inspection - Cardiovascular Exam Cardiovascular Exam: REGULAR RHYTHM, +S1, +S2 - GI/Abdominal Exam GI & Abdominal Exam: Soft, Unremarkable - Extremities Exam Extremities exam: full ROM - Neurological Exam Neurological exam: Alert Discharge Plan - Follow Up Plan Condition: STABLE Disposition: Trans to Other Acute Care Hosp Additional Instructions: patient is to follow up with washer hand during hospital course at [facility] <Jarek Israel - Last Filed: 07/04/17 14:55> Provider - Provider Date of Admission: 06/30/17 11:28 Attending physician: Juan José Mccbae MD Hospital Course - Lab Results Lab Results: Most Recent Lab Values WBC 6.1 K/uL (4.8-10.8) 07/03/17 08:02 RBC 4.66 Mil/uL (3.80-5.20) 07/03/17 08:02 Hgb 13.6 g/dL (11.0-16.0) 07/03/17 08:02 Hct 40.8 % (34.0-47.0) 07/03/17 08:02 MCV 87.6 fL (81.0-99.0) 07/03/17 08:02 MCH 29.3 pg (27.0-31.0) 07/03/17 08:02 MCHC 33.4 g/dL (33.0-37.0) 07/03/17 08:02 RDW 13.2 % (11.5-14.5) 07/03/17 08:02 Plt Count 291 K/uL (130-400) 07/03/17 08:02 MPV 8.5 fL (7.2-11.7) 07/03/17 08:02 Neut % (Auto) 56.8 % (50.0-75.0) 07/03/17 08:02 Lymph % (Auto) 33.3 % (20.0-40.0) 07/03/17 08:02 Overton % (Auto) 6.9 % (0.0-10.0) 07/03/17 08:02 Eos % (Auto) 2.5 % (0.0-4.0) 07/03/17 08:02 Baso % (Auto) 0.5 % (0.0-2.0) 07/03/17 08:02 Neut # 3.5 K/uL (1.8-7.0) 07/03/17 08:02 Lymph # 2.0 K/uL (1.0-4.3) 07/03/17 08:02 Overton # 0.4 K/uL (0.0-0.8) 07/03/17 08:02 Eos # 0.2 K/uL (0.0-0.7) 07/03/17 08:02 Baso # 0.0 K/uL (0.0-0.2) 07/03/17 08:02 PT 11.9 SECONDS (9.7-12.2) 06/30/17 10:03 INR 1.1 06/30/17 10:03 APTT 30 SECONDS (21-34) 06/30/17 10:03 Sodium 138 mmol/L (132-148) 07/03/17 08:02 Potassium 4.1 mmol/L (3.6-5.2) 07/03/17 08:02 Chloride 100 mmol/L (98-107) 07/03/17 08:02 Carbon Dioxide 30 mmol/L (22-30) 07/03/17 08:02 Anion Gap 12 (10-20) 07/03/17 08:02 BUN 16 mg/dL (7-17) 07/03/17 08:02 Creatinine 0.6 mg/dL (0.7-1.2) L 07/03/17 08:02 Est GFR ( Amer) > 60 07/03/17 08:02 Est GFR (Non-Af Amer) > 60 07/03/17 08:02 POC Glucose (mg/dL) 145 mg/dL (65-110) H 07/03/17 16:17 Random Glucose 117 mg/dL (65-105) H 07/03/17 08:02 Hemoglobin A1c 6.0 % (4.2-6.5) 07/01/17 06:06 Calcium 8.3 mg/dl (8.6-10.4) L 07/03/17 08:02 Magnesium 1.9 mg/dL (1.6-2.3) 07/03/17 08:02 Total Bilirubin 1.1 mg/dL (0.2-1.3) 07/03/17 08:02 AST 27 U/L (14-36) 07/03/17 08:02 ALT 34 U/L (9-52) 07/03/17 08:02 Alkaline Phosphatase 52 U/L (38-126) 07/03/17 08:02 Total Creatine Kinase 93 U/L (30-135) 07/01/17 04:27 CK-MB (Mass) 1.11 ng/mL (0.0-3.38) 07/01/17 04:27 Troponin I < 0.0120 ng/mL (0.00-0.120) 07/01/17 04:27 NT-Pro-B Natriuret Pep 87.1 pg/mL (0-900) 06/30/17 10:03 Total Protein 7.3 g/dL (6.3-8.3) 07/03/17 08:02 Albumin 3.8 g/dL (3.5-5.0) 07/03/17 08:02 Globulin 3.5 gm/dL (2.2-3.9) 07/03/17 08:02 Albumin/Globulin Ratio 1.1 (1.0-2.1) 07/03/17 08:02 Triglycerides 134 mg/dL (0-149) 07/01/17 06:06 Cholesterol 156 mg/dL (0-199) 07/01/17 06:06 LDL Cholesterol Direct 62 mg/dL (0-129) 07/01/17 06:06 HDL Cholesterol 58 mg/dL (30-70) 07/01/17 06:06 Free T4 1.32 ng/dL (0.78-2.19) 07/01/17 06:06 TSH 3rd Generation 1.42 mIU/L (0.46-4.68) 07/01/17 06:06 Attending/Attestation - Attestation I have personally seen and examined this patient.: Yes I have fully participated in the care of the patient.: Yes I have reviewed all pertinent clinical information, including history, physical exam and plan: Yes Notes (Text): Medical Attending: Patient was seen and examined by me. Agree with the above note by the resident The patient is being moved to [facility] for further intervention of the aortic valve which showed severe aortic insufficiency Jarek Israel
--- NOTE | 2017-07-03 22:56 | CP.PCM.PN ---
Subjective - Date & Time of Evaluation Date of Evaluation: 07/03/17 Time of Evaluation: 12:05 - Subjective Subjective: Patient with symptomatic AI For transfer to [facility] today Objective - Vital Signs/Intake and Output Vital Signs (last 24 hours): Temp Pulse Resp BP Pulse Ox 97.9 F 83 20 140/60 97 07/03/17 16:00 07/03/17 16:00 07/03/17 16:00 07/03/17 16:00 07/03/17 16:00 Intake and Output: 07/03/17 07/04/17 18:59 06:59 Intake Total 400 Balance 400 - Medications Medications: Current Medications Acetaminophen (Tylenol 325mg Tab) 975 mg PO Q6H PRN PRN Reason: Fever >100.4 F Albuterol/Ipratropium (Duoneb 3 Mg/0.5 Mg (3 Ml) Ud) 3 ml INH RQ6 PRN PRN Reason: SOB Amlodipine Besylate (Norvasc) 5 mg PO DAILY [facility] Last Admin: 07/03/17 09:27 Dose: 5 mg Aspirin (Ecotrin) 81 mg PO DAILY [facility] Last Admin: 07/03/17 09:26 Dose: 81 mg Dextrose (Dextrose 50% Inj) 0 ml IV STAT PRN; Protocol PRN Reason: Hypoglycemia Protocol Dextrose (Glutose 15) 0 gm PO ONCE PRN; Protocol PRN Reason: Hypoglycemia Protocol Famotidine (Pepcid) 20 mg PO BID [facility] Last Admin: 07/03/17 09:26 Dose: 20 mg Furosemide (Lasix) 20 mg PO DAILY [facility] Last Admin: 07/03/17 09:26 Dose: 20 mg Glucagon (Glucagen Diagnostic Kit) 1 mg IM STAT PRN; Protocol PRN Reason: Hypoglycemia Protocol Dextrose (Dextrose 5% In Water 1000 Ml) 1,000 mls @ 0 mls/hr IV .Q0M PRN; Protocol; Per Protocol PRN Reason: Hypoglycemia Protocol Insulin Aspart (Novolog) 0 unit SC ACHS [facility] PRN Reason: Protocol Last Admin: 07/03/17 12:30 Dose: Not Given Montelukast Sodium (Singulair) 10 mg PO HS [facility] Last Admin: 07/02/17 22:24 Dose: 10 mg Ondansetron HCl (Zofran Inj) 4 mg IVP Q6H PRN PRN Reason: Nausea/Vomiting Potassium Chloride (Klor-Con 10) 10 meq PO BRK [facility] Last Admin: 07/03/17 08:17 Dose: 10 meq Rosuvastatin Calcium (Crestor) 10 mg PO HS [facility] Last Admin: 07/02/17 22:24 Dose: 10 mg Fluticasone/Salmeterol (Advair Diskus 100/50) 1 puff INH RQ12 [facility] Last Admin: 07/03/17 10:13 Dose: 1 puff Tramadol HCl (Ultram) 50 mg PO TID PRN PRN Reason: Pain, severe (8-10) - Labs Labs: 07/03/17 08:02 07/03/17 08:02 PT 11.9 SECONDS (9.7-12.2) 06/30/17 10:03 INR 1.1 06/30/17 10:03 APTT 30 SECONDS (21-34) 06/30/17 10:03
--- NOTE | 2017-07-21 16:48 | CARDCATH ---
PROCEDURE DATE: 07/02/2017 PROCEDURES: 1. Left heart catheterization and coronary angiogram. 2. Aortic root angiogram. 3. Radiological supervision and radiological interpretation of the left heart catheterization, coronary angiogram, and aortic root angiogram. CLINICAL INDICATIONS: 1. Dyspnea on minimal exertion. 2. Lhiwbeph-ki-dhzicz aortic insufficiency. 3. Hypertension. 4. Hyperlipidemia. 5. Mitral regurgitation. PERFORMING PHYSICIAN: Ryan Nielsen MD. PROCEDURE: After informed consent, patient was prepped and draped in the usual sterile fashion. 2% lidocaine was given in the right groin for local anesthesia. Using micropuncture technique, 6-Kyrgyz sheath was introduced into the right common femoral artery. Left main coronary artery engaged using JL-4, 6-Kyrgyz diagnostic catheter. Contrast injected and left coronary angiogram was performed. Right coronary artery engaged using JR-4, 6-[place]yr[place] diagnostic catheter. Contrast injected and right coronary angiogram was performed. A 6-Kyr[place]z pigtail catheter crossed into left ventricle across the aortic valve. Pressures measured. Contrast injected and LV angiogram was performed. Pigtail catheter pulled back across the aortic valve. Contrast injected and aortic root angiogram was performed. Patient tolerated the procedure well. FINDINGS: 1. Left main coronary artery is patent. 2. LAD and diagonal branches are patent. 3. Left circumflex and obtuse marginal branches are patent. 4. Right coronary artery is dominant and patent. 5. LV ejection fraction is approximately 80%. EDP is 22. No gradient across the aortic valve. 6. Aortic root angiogram demonstrated normal aortic root size. However, patient has [id number] aortic regurgitation. CONCLUSION: 1. Patient has symptomatic aortic valve disease. [id number] aortic regurgitation. 2. Normal coronaries and normal LV ejection fraction. Patient will be evaluated for aortic valve replacement. Ryan Nielsen MD
== END 2017-07-04 08:51 | disposition short-term general hospital (02) | DRG 287 ==
LOC: C.ER 08:45 → C.9E 11:28 → C.6T 21:58
PROVIDERS: ADMIT Internal Medicine; ATTEND Internal Medicine
PROC: B2151ZZ Fluoroscopy of Left Heart using Low Osmolar Contrast (ICD-10-PCS; 2017-07-02)
PROC: B2111ZZ Fluoroscopy of Multiple Coronary Arteries using Low Osmolar Contrast (ICD-10-PCS; 2017-07-02)
PROC: B3101ZZ Fluoroscopy of Thoracic Aorta using Low Osmolar Contrast (ICD-10-PCS; 2017-07-02)
PROC: 4A023N7 Measurement of Cardiac Sampling and Pressure, Left Heart, Percutaneous Approach (ICD-10-PCS; principal; 2017-07-02 09:00)
DX: I35.1 Nonrheumatic aortic (valve) insufficiency (principal); J44.9 Chronic obstructive pulmonary disease, unspecified; E11.9 Type 2 diabetes mellitus without complications; I34.0 Nonrheumatic mitral (valve) insufficiency; E78.00 Pure hypercholesterolemia, unspecified; I10 Essential (primary) hypertension; K21.9 Gastro-esophageal reflux disease without esophagitis; Z79.82 Long term (current) use of aspirin; Z79.84 Long term (current) use of oral hypoglycemic drugs